=== PATIENT | female | born 1985 | race Caucasian/White ===

== ENCOUNTER 2020-05-03 10:48 | Emergency (ER) | payer OTHER, SELFPAY ==
[2020-05-03 11:00] VITALS: BP 115/70; PULSE 96; RESP 16; TEMP 36.5; O2SAT 99
--- NOTE | 2020-05-03 11:24 | ED.GENADULT ---
HPI - General Adult General Chief complaint: Urogenital-Female Stated complaint: kidney infection Time Seen by Provider: 05/03/20 11:24 Source: patient and RN notes reviewed Mode of arrival: ambulatory Limitations: no limitations History of Present Illness HPI narrative: 34-year-old female presents with urinary complaints for the past 2 days. Dysuria consist of frequency and urgency.? Aleve, last 05/01/20 without relief.? Nancy says approximately a month ago she started having intermittent diffused lower back pain that radiates to lower abdomen without nausea, vomiting, constipation, or diarrhea. Denies fever or chills. No significant pelvic pain. No vaginal discharge.? No concerns for STDs. Exacerbating factors urinating.? Denies hematuria or vaginal bleeding. Denies being , LMP 04/09/20.? Intermittent diffused flank pain that radiates to lower abdomen. Denies nausea or vomiting.? Tolerating liquids well.? Remains active. The patient reports she have not been diagnosed with COVID-19. The patient reports she is not waiting for the results of a COVID-19 lab test. The patient reports she do not have fever, chills, weakness, or fatigue. The patient reports she do not have a new or worsening cough or shortness of breath. Denies chest pain. The patient reports she do not have any rhinorrhea, congestion, sore throat, or diarrhea. Denies recent traveling. Denies concerns for COVID-19 or exposures been home with limited outdoor exposure except for essential household needs, work, and return home. At this time, patient is not suspected of having COVID-19. Some parts of this dictation were generated by voice recognition software and may contain typographical and/or grammatical inaccuracies. Related Data Allergies Allergy/AdvReac Type Severity Reaction Status Date / Time milk Allergy Mild Nausea Verified 05/03/20 10:56 Review of Systems Review of Systems: Narrative: CONSTITUTIONAL: Denies fever, chills, sweats. EYES: Denies visual changes, redness, discharge. ENT: Denies rhinorrhea, congestion, sore throat, otalgia. CARDIOVASCULAR: Denies chest pain, palpitations, edema. RESPIRATORY: Denies dyspnea, wheezing, cough. GASTROINTESTINAL: Complains of intermittent lower abdominal pain. Denies nausea, vomiting, diarrhea. GENITOURINARY: Complains of dysuria (frequency and urgency). Denies burning with urination, hematuria, abnormal discharge. SKIN: Denies rash or itching. MUSCULOSKELETAL: Intermittent diffused lower back pain. Denies joint pain or myalgia. NEUROLOGIC: Denies numbness or focal weakness. PSYCHIATRIC: Denies anxiety or depression. All systems reviewed & are unremarkable except as noted in HPI and below. [facility] Past Medical History Medical History (Updated 05/09/20 @ 11:59 by JUAN JOSE Corrigan) delivery delivered Surgical History Surgical History (Updated 05/09/20 @ 11:59 by JUAN JOSE Corrigan) H/O section X1 Family History Family History (Updated 05/09/20 @ 12:13 by JUAN JOSE Corrigan) Father , Kidney failure Kidney disease Mother Alive and well Social History Social History (Updated 05/09/20 @ 12:02 by JUAN JOSE Corrigan) Smoking packs per day: 0.25 Smoking cigarettes per day: 5.0 Years smoked: 15 Smoking pack-years: 3.75 Smoking status: Current every day smoker Alcohol intake: current Substance use: current Living arrangements: with family Occupation/Education: occupation Gender identity (if verbalized by the patient): Female Sexual Orientation (if Verbalized by the Patient): Straight or Heterosexual Comments At time of signature, agree with nurse past medical, surgical, social, and family history.? There is no relevant family history pertinent to the presenting complaint. Exam Narrative: Exam Narrative: GENERAL: This is a well-nourished, well-developed patient, in no apparent distress.? Talks in full sentences and ambula
== END 2020-05-03 11:37 | disposition home or self-care (01) ==
PROVIDERS: Emergency Provider Nurse Practitioner Family
DX: R30.0 Dysuria (principal)
CPT/HCPCS: 81003; 81025; 99213; G0463

== ENCOUNTER → 2023-05-31 14:12 | Outpatient (CLI) | payer SELFPAY ==
--- NOTE | ~2023-05-31 | US_ITS ---
EXAMINATION: US transvaginal DATE: 05/31/2023 14:36 INDICATION: Pelvic pain Comparison:No prior studies for comparison. TECHNIQUE: Multiple endovaginal sonographic images of the pelvis performed. FINDINGS: The uterus measures 7.8 x 6.1 x 6.6 cm. The endometrial complex measures 1.5 cm. The right ovary measures 2.8 x 1.8 x 2.1 cm and the left ovary measures 2.6 x 1.7 x 1.8 cm. There ar e small follicles in each ovary. Normal doppler signal in both ovaries. There is no free fluid in the pelvis. There are no abnormal masses seen on either side. IMPRESSION: 1. Mild endometrial thickening. Reviewed, dictated and finalized at location L.
== END ==
PROVIDERS: PCP Nurse Practitioner; Visit Provider Nurse Practitioner
DX: R10.2 Pelvic and perineal pain (principal)
CPT/HCPCS: 76830

== ENCOUNTER 2023-07-22 09:47 | Outpatient (CLI) | payer BC, SELFPAY ==
--- NOTE | ~2023-07-22 | MR_ITS ---
EXAMINATION: MR MRCP wo/w con/w 3D wo ind DATE: 07/22/2023 11:28 INDICATION: Check susceptibility to other disease, SOCORRO mutation TECHNIQUE: Magnetic resonance imaging (MRI) of the abdomen was performed without and with intravenous contrast. Sequences included coronal T2-weighted SS-FSE ARC, coronal T2-weighted FS SS-FSE, coronal T2-weighted 2D FS FIESTA, Water:Coronal LAVA-Flex, sagittal T2-weighted SS-FSE ARC, axial SSFSE ARC, axial 3D DualEcho, axial DWI B=600, axial T1-weighted LAVA, FAT:Coronal LAVA-Flex, and coronal in and opposed phase LAVA-Flex. Thick-slab T2-weighted FRFSE-XL images were obtained for magnetic resonance cholangiopancreatography (MRCP). Maximum intensity projection 3-D reconstructions of the volumetric data were created by the technologist. Postcontrast sequences included a time course of axial T1-weig hted LAVA, FAT:Coronal LAVA-Flex, coronal in and opposed phase LAVA-Flex, and Water:Coronal LAVA-Flex . COMPARISON: None. CONTRAST: Multihance, 15 cc FINDINGS: ABDOMEN MRI: The liver, spleen, pancreas, gallbladder, and adrenal glands are normal. The kidneys are unremarkable. There are no pathologically enlarged abdominal lymph nodes. There is no abnormal enhan cement after contrast administration. There are no dilated loops of bowel. The appendix is normal. ABDOMEN MRCP: There are no stones or stricture of the common bile duct. No intrahepatic or extrahepat ic biliary dilatation identified. The pancreatic duct is unremarkable. IMPRESSION: 1. Unremarkable abdominal MRI. Reviewed, dictated and finalized at location B.
== END 2023-07-22 09:48 | disposition home or self-care (01) ==
PROVIDERS: Visit Provider Nurse Practitioner Family
DX: Z15.89 Genetic susceptibility to other disease (principal); Z15.01 Genetic susceptibility to malignant neoplasm of breast; Z15.09 Genetic susceptibility to other malignant neoplasm
CPT/HCPCS: 74183; 76376; A9577

== ENCOUNTER 2023-08-08 01:33 | Day surgery (SDC) | payer BC, SELFPAY ==
[2023-08-02 09:38] VITALS: BMI 27.4
--- NOTE | 2023-08-02 09:52 | PC.NURSE ---
Report to the Outpatient Waiting Room, entrance under the green pavilion located off [facility], at time _1030 on date ___[id number]____. Planned Procedure Time: 1230___. Time changes happen often and if your time is changed the preop area will call you the afternoon before. - You and your visitor will be asked to self-screen and do not enter if you have any COVID symptoms. - A mask is optional within the hospital at this time. Patients may have clear liquids (water, carbonated beverages, clear teas, apple juice) until 3 hours prior to surgery with a maximum of 20 ounces. - No food from midnight until time of surgery - Take the following medications with a SIP of water the morning of surgery: no home medications DO NOT STOP ANY OF YOUR OTHER PRESCRIPTION MEDICATIONS PRIOR TO SURGERY ?EXCEPT THE FOLLOWING Medications to discontinue per physician do not use marijuana the night before or day of surgery ,. Date to take last dose Please no make-up, nail faroese, hairspray, perfume, deodorant, or body powder the day of surgery. No jewelry (including any body piercings) or valuables the day of surgery, leave them at home. Please take a shower or bath the night before, or the morning of, surgery with an antibacterial soap. Wear comfortable, loose fitting clothing. Children are encouraged to wear pajamas. - Jewelry must be removed prior to entering the operating room. Rings and piercings that are not removed may be cut off. - The hospital will not accept responsibility for valuables. - Please leave all valuables, including medications, at home the day of surgery. If you are going home after surgery, a licensed concrete mixing truck driver must drive you home. - NO public transportation without another adult if you receive anesthesia. - We recommend that an adult stay with you for 24 hours following discharge. - We also recommend that you do not drive, make important decision, drink alcoholic beverages, or take any drugs that were not prescribed by your health care provider for at least 24 hours after your discharge time. Follow any additional instructions given to you from your surgeon. If you or anyone in your household have experienced Covid symptoms in the past week, please notify your surgeon or the nurse liaison at the phone number below for possible testing. Telephone instructions given to ___Tatianarandolph (patient) and asked if any additional questions and then verbalized understanding. Patient advised to call surgeon office or pre surgery nurse liaison [phone] if any additional questions.
--- NOTE | 2023-08-08 07:27 | WPDHPUPDATE1 ---
History and Physical Update Update Date/Time: 08/08/23 07:27 History and Physical has been reviewed, including an updated exam of the patient. There are NO changes in the patient's condition. Risks, benefits, and alternatives have been discussed and questions answered. Patient agrees to proceed with procedure.
--- NOTE | 2023-08-08 07:27 | PM.HPGS ---
History of Present Illness History of Present Illness Consent: Risks, benefits, and alternatives have been discussed and questions answered. Patient agrees to proceed with procedure. Chief complaint: Menorrhagia Narrative: Nancy Anaya is a 38 year old female with worsening menstrual cycles. Patient with increased cramping and heavy bleeding with large clots. It was recommended to proceed with pelvic ultrasound which was normal. Options were then discussed and it was recommended to proceed with D and hysteroscopy. Risks of infection, bleeding, perforation, and possible pathology are reviewed. Patient voices understanding and agrees to proceed. 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 Wound dehiscence 08/2014 Surgical History Surgical History (Updated 08/08/23 @ 07:29 by Christy Benjamin MD) H/O section X1 2013 History of bilateral tubal ligation 2013 at the time of her Family History Family History Father , Kidney failure Kidney disease Mother Alive and well Social History Social History (Updated 05/09/20 @ 12:02 by JUAN JOSE Corrigan) Smoking packs per day: 0.33 Smoking cigarettes per day: 6.6 Years smoked: 19 Smoking pack-years: 6.27 Smoking status: Current every day smoker Tobacco type: cigarettes Second hand tobacco smoke exposure: Yes Alcohol intake: current Drinks per week: 0 Alcohol use details: may drink a couple times a year Substance use: current Substance use type: marijuana Living arrangements: with family Occupation/Education: occupation Gender identity (if verbalized by the patient): Female Sexual Orientation (if Verbalized by the Patient): Straight or Heterosexual Spiritual care concerns: No Meds Home Medications and Allergies Home Medications Medication Instructions Recorded Confirmed Type No Home Medications 06/23/23 08/02/23 History Allergies Allergy/AdvReac Type Severity Reaction Status Date / Time adhesive Allergy Mild Hives Verified 08/02/23 09:37 milk Allergy Mild Nausea Verified 08/02/23 09:37 Exam Const: General: healthy appearing and alert Orientation/consciousness: patient oriented x3 Resp: Effort & Inspection: normal respiratory effort GI: GI Palp: Yes Soft to palpation, No Tenderness to palpation present (GI) and No Palpable mass present : External Female Exam: normal external appearance Speculum Exam - Vagina: normal appearance of the vagina and normal vaginal discharge Speculum Exam - Cervix: normal appearance of the cervix Bimanual exam- vagina & uterus: uterine size normal and consistency normal Bimanual Exam- Adnexa, other: normal adnexae and No adnexal tenderness Neuro: General: patient oriented x3 Assessment and Plan Assessment and plan (1) Menorrhagia: Code(s): N92.0 - Excessive and frequent menstruation with regular cycle Status: Acute Assessment and Plan: Will plan to proceed with D&C hysteroscopy
[2023-08-08 10:39] VITALS: BP 110/66; PULSE 86; RESP 20; TEMP 36.6; O2SAT 98
[2023-08-08] MEDS: ACETAMINOPHEN 500 MG TABLET 1000 MG PO (11:02)
[2023-08-08] MEDS: LACTATED RINGERS 1,000 ML 30 ML IV CONT (11:10)
--- NOTE | 2023-08-08 11:23 | P.PNAN_ITS ---
Anes - Initial Pre Proc Eval Procedure: Operation Date: 08/08/23 12:30 Proposed Procedures p Hysteroscopy Dilation and Curettage - Christy Benjamin MD Date/Time: 08/08/23 11:23 Surgeon: Christy Benjamin MD Pre Op Diagnosis: Menorrhagia Patient Data Age: 38 Gender: F Height: 1.65 m Weight: 74.8 kg Allergies Allergy/AdvReac Type Severity Reaction Status Date / Time adhesive Allergy Mild Hives Verified 08/08/23 10:53 milk Allergy Mild Nausea Verified 08/08/23 10:53 Home Medications Medication Instructions Recorded Confirmed Type No Home Medications 06/23/23 08/08/23 History Patient hx anesthesia problems: none Family hx anesthesia problems: none Results Review: All pre-operative results and documents have been reviewed as part of the pre- operative evaluation. 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 Wound dehiscence 08/2014 Surgical History Surgical History H/O section X1 2014 History of bilateral tubal ligation 2013 at the time of her Family History Family History Father , Kidney failure Kidney disease Mother Alive and well Social History Social History Smoking packs per day: 0.33 Smoking cigarettes per day: 6.6 Years smoked: 19 Smoking pack-years: 6.27 Smoking status: Current every day smoker Tobacco type: cigarettes Second hand tobacco smoke exposure: Yes Alcohol intake: current Drinks per week: 0 Alcohol use details: may drink a couple times a year Substance use: current Substance use type: marijuana Living arrangements: with family Occupation/Education: occupation Gender identity (if verbalized by the patient): Female Sexual Orientation (if Verbalized by the Patient): Straight or Heterosexual Spiritual care concerns: No Anes - Eval Final PreProcedure Day of Procedure 08/08/23 11:23 Patient weight: overweight Heart: regular rate and rhythm Lungs: clear to auscultation Airway: Mallampati scale class 1 Neurological: alert and oriented Last oral intake: >/= 8 hours ASA classification: II Emergent: no Anesthetic plan: proceed Anesthesia type and monitoring: general GIVS and standard monitoring Results Review: All pre-operative results and documents have been reviewed as part of the pre- operative evaluation. Informed Consent: The patient's anesthetic plan and its attendant risks and benefits were discussed with the patient/family/POA. Questions were solicited and answers provided to the satisfaction of the patient/family/POA.
[2023-08-08] MEDS: KETOROLAC 30 MG/ML VIAL (*BKC) IV PUSH (11:35)
[2023-08-08] MEDS: LIDOCAINE HCL 1% LOCAL INJ 20 ML VIAL 10 ML INFILTRATE (11:39)
[2023-08-08 11:49] VITALS: BP 93/51; PULSE 63
--- NOTE | 2023-08-08 11:55 | W.PM.PROC2 ---
Procedure Note - Detailed Date of Procedure 08/08/23 Pre-op Diagnosis Menorrhagia Post-op Diagnosis Same Procedure Performed Hysteroscopy D&C Surgeon Christy Benjamin MD Anesthesia MAC Findings The cervix is stenotic. The uterus is rotated with the tubes at 12 and 6:00 a.m.. The endometrial lining appears grossly normal. Description of Procedure The patient is taken to the operating room and placed under anesthesia in the dorsal lithotomy position. She was prepped and draped in the usual sterile fashion. [employer] speculum was placed in the vagina and the cervix grasped on the anterior lip with a tenaculum. The uterus was attempted to be sounded and the cervix is noted to be stenotic. The small dilator was attempted to be used and was not able to pass. Os Finders were opened and used and the cervix was able to be entered. The cervix was serially dilated to a 5 Hegar. The uterus sounded to 10cm. The diagnostic hysteroscope was then placed and the above finding are noted. The hysteroscope was removed and the sharp curette used to curette the endometrium until a good uterine cry was noted in all areas. All instruments are removed. Sponge, needle, and instrument counts are correct per the OR staff. Patient was awakened from anesthesia taken to recovery in stable condition. Estimated Blood Loss 5 Drains No Packing No Pathology Yes (Endometrial curettings) Complications No immediate complications Condition Stable Disposition PACU
[2023-08-08 12:00] VITALS: BP 94/54; PULSE 66
[2023-08-08 12:45] VITALS: BP 101/67; PULSE 54
[2023-08-08] MEDS: oxyCODONE HCL (*CRX) 5 MG TAB IR PO (12:49)
[2023-08-08 13:15] VITALS: BP 95/52; PULSE 66
== END 2023-08-08 13:30 | disposition home or self-care (01) ==
PROVIDERS: Visit Provider Obstetrics & Gynecology Gynecology
PROC: 0U5B8ZZ Destruction of Endometrium, Via Natural or Artificial Opening Endoscopic (ICD-10-PCS; CPT 58563; principal; 2023-08-08 12:30)
DX: N92.0 Excessive and frequent menstruation with regular cycle (principal); N85.4 Malposition of uterus; F17.210 Nicotine dependence, cigarettes, uncomplicated
CPT/HCPCS: 58558; 88305; A9270; J1885; J2704; J7120

== ENCOUNTER 2023-10-17 02:39 | Day surgery (SDC) | payer BC, SELFPAY ==
[2023-10-04 09:27] VITALS: BMI 27.5
--- NOTE | 2023-10-04 09:33 | PC.NURSE ---
Report to the Outpatient Waiting Room, entrance under the green pavilion located off [facility], at time 0700_ on date 10/17/22__. Planned Procedure Time: _0900. Time changes happen often and if your time is changed the preop area will call you the afternoon before. - You and your visitor will be asked to self-screen and do not enter if you have any COVID symptoms. - A mask is optional within the hospital at this time. Patients may have clear liquids (water, carbonated beverages, clear teas, apple juice) until 3 hours prior to surgery with a maximum of 20 ounces. - No food from midnight until time of surgery - Infants may have breast milk until 4 hours before surgery, formula 6 hours prior to surgery. - Children will be allowed to drink immediately following surgery. If applicable, please bring a bottle or sippy cup to assist with drinking. Juice, water, soda, and popsicles are readily available. For infants on formula, please bring formula the day of surgery. Pacifiers are allowed. Take the following medications with a SIP of water the morning of surgery: NONE DO NOT STOP ANY OF YOUR OTHER PRESCRIPTION MEDICATIONS PRIOR TO SURGERY ?EXCEPT THE FOLLOWING Medications to discontinue per physician NONE Date to take last dose Please no make-up, nail pakistani, hairspray, perfume, deodorant, or body powder the day of surgery. No jewelry (including any body piercings) or valuables the day of surgery, leave them at home. Please take a shower or bath the night before, or the morning of, surgery with an antibacterial soap. Wear comfortable, loose fitting clothing. Children are encouraged to wear pajamas. - Jewelry must be removed prior to entering the operating room. Rings and piercings that are not removed may be cut off. - The hospital will not accept responsibility for valuables. - Please leave all valuables, including medications, at home the day of surgery. If you are going home after surgery, a licensed cdl flatbed truck driver must drive you home. - NO public transportation without another adult if you receive anesthesia. - We recommend that an adult stay with you for 24 hours following discharge. - We also recommend that you do not drive, make important decision, drink alcoholic beverages, or take any drugs that were not prescribed by your health care provider for at least 24 hours after your discharge time. For Pediatric surgeries, we recommend two adults accompany the child home. Follow any additional instructions given to you from your surgeon. If you or anyone in your household have experienced Covid symptoms in the past week, please notify your surgeon or the nurse liaison at the phone number below for possible testing. Telephone instructions given to __PATIENT__and asked if any additional questions and then verbalized understanding. Patient advised to call surgeon office or pre surgery nurse liaison [phone] if any additional questions.
[2023-10-17 07:10] VITALS: BP 94/75; PULSE 83; RESP 16; TEMP 36.4; O2SAT 99
--- NOTE | 2023-10-17 07:27 | WPDHPUPDATE1 ---
History and Physical Update Update Date/Time: 10/17/23 07:27 History and Physical has been reviewed, including an updated exam of the patient. There are NO changes in the patient's condition. Risks, benefits, and alternatives have been discussed and questions answered. Patient agrees to proceed with procedure.
--- NOTE | 2023-10-17 07:28 | PM.HPGS ---
History of Present Illness History of Present Illness Consent: Risks, benefits, and alternatives have been discussed and questions answered. Patient agrees to proceed with procedure. Chief complaint: menorrhagia Narrative: Nancy Anaya is a 38 year old female with menorrhagia. Patient underwent hysteroscopy with benign findings. Options were reviewed and patient elects to proceed with endometrial ablation. Risks of infection, bleeding, and perforation were reviewed. Success and outcome with the ablation were reviewed. Patient voices understanding and agrees to proceed. Review of Systems Review of Systems: not repeated day of surgery; patient states no changes in status [facility] Past Medical History Medical History (Updated 10/17/23 @ 07:30 by Christy Benjamin MD) Monoallelic mutation of SOCORRO gene Increasing her risk of breast and pancreatic cancer (normal spontaneous vaginal delivery) 2007 Wound dehiscence 08/2014 Surgical History Surgical History (Updated 10/17/23 @ 07:30 by Christy Benjamin MD) H/O section X1 2013 History of bilateral tubal ligation 2013 at the time of her History of hysteroscopy Family History Family History Father , Kidney failure Kidney disease Mother Alive and well Social History Social History Smoking packs per day: 0.33 Smoking cigarettes per day: 6.6 Years smoked: 19 Smoking pack-years: 6.27 Smoking status: Former smoker Tobacco type: cigarettes Second hand tobacco smoke exposure: Yes Alcohol intake: former Drinks per week: 0 Alcohol use details: may drink a couple times a year Substance use: current Substance use type: marijuana Other substance usage details: HS DAILY Living arrangements: with family Occupation/Education: occupation Gender identity (if verbalized by the patient): Female Sexual Orientation (if Verbalized by the Patient): Straight or Heterosexual Spiritual care concerns: No Meds Home Medications and Allergies Home Medications Medication Instructions Recorded Confirmed Type No Home Medications 06/23/23 10/04/23 History Allergies Allergy/AdvReac Type Severity Reaction Status Date / Time adhesive Allergy Mild Hives Verified 10/04/23 09:27 milk Allergy Mild Nausea Verified 10/04/23 09:27 Exam Const: General: healthy appearing and alert Orientation/consciousness: patient oriented x3 Resp: Effort & Inspection: normal respiratory effort GI: GI Palp: Yes Soft to palpation, No Tenderness to palpation present (GI) and No Palpable mass present : External Female Exam: normal external appearance Speculum Exam - Vagina: normal appearance of the vagina and normal vaginal discharge Speculum Exam - Cervix: normal appearance of the cervix Bimanual exam- vagina & uterus: uterine size normal and consistency normal Bimanual Exam- Adnexa, other: normal adnexae and No adnexal tenderness Neuro: General: patient oriented x3 Assessment and Plan Assessment and plan (1) Menorrhagia: Code(s): N92.0 - Excessive and frequent menstruation with regular cycle Status: Acute Assessment and Plan: plan to proceed with endometrial ablation
[2023-10-17] MEDS: LACTATED RINGERS 1,000 ML 30 ML IV CONT (07:30)
[2023-10-17] MEDS: ACETAMINOPHEN 500 MG TABLET 1000 MG PO (07:34)
--- NOTE | 2023-10-17 08:23 | WPDANESEPPF ---
Anes - Initial Pre Proc Eval Procedure: Operation Date: 10/17/23 09:00 Proposed Procedures p Hysteroscopy with Kathy Endometrial Ablation - Christy Benjamin MD Date/Time: 10/17/23 08:23 Surgeon: Christy Benjamin MD Pre Op Diagnosis: menorrhagia Patient Data Age: 38 Gender: F Height: 1.65 m Weight: 71.9 kg Last Vital Signs Temp 36.4 C L 10/17/23 07:10 Pulse 83 10/17/23 07:10 Resp 16 10/17/23 07:10 BP 94/75 L 10/17/23 07:10 Pulse Ox 99 10/17/23 07:10 O2 Del Method Room Air 10/17/23 07:10 Allergies Allergy/AdvReac Type Severity Reaction Status Date / Time adhesive Allergy Mild Hives Verified 10/17/23 07:44 milk Allergy Mild Nausea Verified 10/17/23 07:44 Home Medications Medication Instructions Recorded Confirmed Type No Home Medications 06/23/23 10/17/23 History Patient hx anesthesia problems: none Family hx anesthesia problems: none Results Review: All pre-operative results and documents have been reviewed as part of the pre-operative evaluation. [facility] Past Medical History Medical History Monoallelic mutation of SOCORRO gene Increasing her risk of breast and pancreatic cancer (normal spontaneous vaginal delivery) 2007 Wound dehiscence 08/2014 Surgical History Surgical History H/O section X1 2014 History of bilateral tubal ligation 2013 at the time of her History of hysteroscopy Family History Family History Father , Kidney failure Kidney disease Mother Alive and well Social History Social History Smoking packs per day: 0.33 Smoking cigarettes per day: 6.6 Years smoked: 19 Smoking pack-years: 6.27 Smoking status: Former smoker Tobacco type: cigarettes Second hand tobacco smoke exposure: Yes Alcohol intake: former Drinks per week: 0 Alcohol use details: may drink a couple times a year Substance use: current Substance use type: marijuana Other substance usage details: DAILY Living arrangements: with family Occupation/Education: occupation Gender identity (if verbalized by the patient): Female Sexual Orientation (if Verbalized by the Patient): Straight or Heterosexual Spiritual care concerns: No Anes - Eval Final PreProcedure Day of Procedure 10/17/23 08:23 Patient weight: overweight Heart: regular rate and rhythm Lungs: clear to auscultation Airway: Mallampati scale class 1 Neurological: alert and oriented Last oral intake: >/= 8 hours ASA classification: II Emergent: no Anesthetic plan: proceed Anesthesia type and monitoring: general GIVS and standard monitoring Results Review: All pre-operative results and documents have been reviewed as part of the pre-operative evaluation. Informed Consent: The patient's anesthetic plan and its attendant risks and benefits were discussed with the patient/family/POA. Questions were solicited and answers provided to the satisfaction of the patient/family/POA.
[2023-10-17] MEDS: LIDOCAINE HCL 1% LOCAL INJ 20 ML VIAL 10 ML INFILTRATE (08:50)
[2023-10-17 09:18] VITALS: BP 94/45; PULSE 50; RESP 14; O2SAT 96
--- NOTE | 2023-10-17 09:19 | P.OP_ITS ---
Procedure Note - Detailed Date of Procedure 10/17/23 Pre-op Diagnosis menorrhagia Post-op Diagnosis Same Procedure Performed Kathy endometrial ablation Surgeon Christy Benjamin MD Anesthesia MAC and Local Findings very stenotic cervix endometrium appears grossly normal uterus was rotated with the tubes at 6 and 12 Description of Procedure The patient is taken to the operating room and placed under anesthesia in the dorsal lithotomy position. She was prepped and draped in the usual sterile fashion. [place] speculum was placed in the vagina and the cervix grasped on the anterior lip with a tenaculum. The cervix is injected in each quadrant with 1% lidocaine. The uterus was attempted to be sounded and this is not successful due to internal cervical stenosis. The Hegar dilators are used and again the cervix is not able to be entered. The os Finders are used and again the cervix is not able to be entered. The hysteroscope is placed with an attempt to hydro dilate and this was again not successful. The entire process is attempted to separate times without success. The 3rd attempt the Hegar dilators are able to enter the cavity. The cervix is serially dilated to an 8 Hegar. The uterus is sounded to 8cm. The hysteroscope was placed with the above-stated findings. The Kathy device is opened, set at 5 cm, and placed. The 3 safety checks passed on the 1st attempt. However, when the ablation started, the patient had an a single whole-body jerking. The patient's vitals remained stable throughout. The device read a 002 error code. Troubleshooting for this code was performed the device was unplugged, removed from the patient, and replaced. The identical error code and process occurred 2nd time. A 2nd hand piece was obtained, set at 5cm, and placed. All 3 safety test passed on the 1st attempt. The ablation proceeded without difficulty and lasted the entire to minutes. The hand piece is removed. The hysteroscope was replaced and a good ablation effect is noted. All instruments are removed. The patient was awakened from anesthesia and taken to recovery in stable condition. Sponge, needle, and instrument counts are correct per the OR staff. Estimated Blood Loss 5 Drains No Packing No Pathology None sent Complications No immediate complications Condition Stable Disposition PACU
[2023-10-17] MEDS: fentaNYL CITRATE INJ (*CRX) 100 MCG/2 ML VIAL 25 MCG IV PUSH ×4 (09:33→09:50)
[2023-10-17 09:45] VITALS: BP 91/43; PULSE 47; RESP 16; O2SAT 96
[2023-10-17] MEDS: oxyCODONE HCL (*CRX) 5 MG TAB IR PO (09:52)
[2023-10-17] MEDS: KETOROLAC 30 MG/ML VIAL (*BKC) IV PUSH (10:05)
[2023-10-17 10:15] VITALS: BP 85/48; PULSE 41; RESP 16; O2SAT 99
[2023-10-17 10:45] VITALS: BP 85/46; PULSE 44; RESP 16; O2SAT 99
[2023-10-17] MEDS: ONDANSETRON INJ 4 MG/2 ML VIAL IV PUSH (10:50)
[2023-10-17 11:15] VITALS: BP 84/47; PULSE 42; RESP 14
== END 2023-10-17 11:24 | disposition home or self-care (01) ==
PROVIDERS: Visit Provider Obstetrics & Gynecology Gynecology
PROC: 0U5B8ZZ Destruction of Endometrium, Via Natural or Artificial Opening Endoscopic (ICD-10-PCS; CPT 58563; principal; 2023-10-17 09:00)
DX: N92.0 Excessive and frequent menstruation with regular cycle (principal); N88.2 Stricture and stenosis of cervix uteri; F12.90 Cannabis use, unspecified, uncomplicated; Z87.891 Personal history of nicotine dependence
CPT/HCPCS: 58563; A9270; J1885; J2250; J2405; J2704; J3010; J7120

== ENCOUNTER 2023-12-11 08:34 | Emergency (ER) | payer OTHER, SELFPAY ==
[2023-12-11 08:47] VITALS: BP 115/76; PULSE 83; RESP 16; O2SAT 100
[2023-12-11] MEDS: SODIUM CHLORIDE 0.9% IV 1,000 ML 999 ML IV CONT (09:24)
[2023-12-11] MEDS: ONDANSETRON INJ 4 MG/2 ML VIAL IV PUSH (09:25)
[2023-12-11] MEDS: KETOROLAC 30 MG/ML VIAL (*BKC) IV PUSH (09:26)
[2023-12-11 09:33] VITALS: O2SAT 100
--- NOTE | 2023-12-11 09:43 | ED.GENADULT ---
HPI - General Adult General Chief complaint: Upper Respiratory Infection Stated complaint: RESP SYMPTOMS,N/V/D NEEDS A HYDRATION BAG Time Seen by Provider: 12/11/23 08:42 History of Present Illness HPI narrative: Patient is a 38-year-old female who presents ER with concern for dehydration. She feels she acquired the flu earlier in the week. She has had fever and chills as well as body aches. She has also developed nausea vomiting and diarrhea. She has not lost consciousness. No dizziness. Related Data Allergies Allergy/AdvReac Type Severity Reaction Status Date / Time adhesive Allergy Mild Hives Verified 10/17/23 07:44 milk Allergy Mild Nausea Verified 10/17/23 07:44 Review of Systems Constitutional: Constitutional: Reports chills, Reports fatigue and Reports fever(s) ENT: Denies nasal congestion and Denies sore throat Cardiovascular: Cardiovascular: Reports no additional cardiovascular complaints Respiratory: Respiratory: Reports no additional respiratory complaints Gastrointestinal: Gastrointestinal: Denies abdominal pain, Reports diarrhea, Reports nausea and Reports vomiting PMFSH Past Medical History Medical History Monoallelic mutation of SOCORRO gene Increasing her risk of breast and pancreatic cancer (normal spontaneous vaginal delivery) 2008 Wound dehiscence 08/2014 Surgical History Surgical History H/O section X1 2014 History of bilateral tubal ligation 2013 at the time of her History of hysteroscopy Family History Family History Father , Kidney failure Kidney disease Mother Alive and well Social History Social History Smoking packs per day: 0.33 Smoking cigarettes per day: 6.6 Years smoked: 19 Smoking pack-years: 6.27 Smoking status: Former smoker Tobacco type: cigarettes Second hand tobacco smoke exposure: Yes Alcohol intake: former Drinks per week: 0 Alcohol use details: may drink a couple times a year Substance use: current Substance use type: marijuana Other substance usage details: HS DAILY Living arrangements: with family Occupation/Education: occupation Gender identity (if verbalized by the patient): Female Sexual Orientation (if Verbalized by the Patient): Straight or Heterosexual Spiritual care concerns: No Exam Narrative: GENERAL: Well-appearing, well-nourished, and in no acute distress. HEAD: Normocephalic, atraumatic. NECK: Supple. CHEST: Clear to auscultation. No respiratory distress. HEART: Regular rate and rhythm. Normal peripheral pulses. ABDOMEN: Soft, nontender, nondistended. EXTREMITIES: Normal range of motion. No edema. SKIN: Warm, dry, no rash. NEURO: Alert and oriented x3. PSYCH: Normal mood and affect. Course Course Emergency Course: Patient resting comfortably. Hydrated. Discharge home. Declined lab work. Vital Signs Vital signs: Vital Signs Pulse Rate 83 12/11/23 08:47 Respiratory Rate 16 12/11/23 08:47 Blood Pressure 115/76 12/11/23 08:47 Pulse Oximetry 100 12/11/23 08:47 Temperature 97.0 F L 12/11/23 10:30 Pulse Rate 62 12/11/23 10:30 Respiratory Rate 18 12/11/23 10:30 Blood Pressure 103/70 12/11/23 10:30 Pulse Oximetry 99 12/11/23 10:30 Oxygen Delivery Room Air 12/11/23 09:33 Medical Decision Making Vital Signs Vital Signs: Vital Signs Pulse Rate 83 12/11/23 08:47 Respiratory Rate 16 12/11/23 08:47 Blood Pressure 115/76 12/11/23 08:47 Pulse Oximetry 100 12/11/23 08:47 Temperature 97.0 F L 12/11/23 10:30 Pulse Rate 62 12/11/23 10:30 Respiratory Rate 18 12/11/23 10:30 Blood Pressure 103/70 12/11/23 10:30 Pulse Oximetry 99 12/11/23 10:30 Oxygen Deliv
[2023-12-11 10:03] VITALS: BP 108/65; PULSE 59; RESP 18; O2SAT 100
[2023-12-11 10:30] VITALS: BP 103/70; PULSE 62; RESP 18; TEMP 36.1; O2SAT 99
[2023-12-11 11:15] LABS: Influenza A QL RT-PCR Negative (Negative); Influenza B QL RT-PCR Positive (Negative); RSV RNA, RT-PCR Negative (Negative); SARS-CoV-2 RNA PCR Negative (Negative)
== END 2023-12-11 10:30 | disposition home or self-care (01) ==
PROVIDERS: Emergency Provider Emergency Medicine
DX: J10.2 Influenza due to other identified influenza virus with gastrointestinal manifestations (principal); E86.0 Dehydration; Z20.822 Contact with and (suspected) exposure to COVID-19; Z15.09 Genetic susceptibility to other malignant neoplasm; Z87.891 Personal history of nicotine dependence
CPT/HCPCS: 87637; 96361; 96374; 96375; 99284; J1885; J2405; J7030

== ENCOUNTER 2024-01-10 15:50 | Outpatient (CLI) | payer OTHER, SELFPAY ==
--- NOTE | ~2024-01-10 | MM_ITS ---
EXAMINATION: MM screening amber BI w ezequiel HISTORY: Screening TECHNIQUE: Craniocaudal and mediolateral oblique 3-D tomosynthesis images were obtained and synthetic 2-D images were generated. CAD analysis was submitted and interpreted. COMPARISON: No prior mammogram is available for comparison at this institution. BREAST PARENCHYMAL COMPOSITION: Not dense: There are scattered areas of fibroglandular density. FINDINGS: There is no evidence of suspicious mass, calcification, or architectural distortion to sugg est malignancy in either breast. There has been no suspicious interval change. IMPRESSION: 1. No mammographic evidence of malignancy. 2. Recommend routine screening mammography in one year. BI-RADS Category 1: Negative Reviewed, dictated and finalized at location A.
== END 2024-01-10 15:51 ==
PROVIDERS: PCP Nurse Practitioner; Visit Provider Nurse Practitioner
DX: Z12.31 Encounter for screening mammogram for malignant neoplasm of breast (principal)
CPT/HCPCS: 77063; 77067